=== PATIENT | female | born 1980 | race African-American/Black ===

== ENCOUNTER 2019-12-28 14:55 | Emergency (ER) | payer OTHER, SELFPAY ==
--- NOTE | 2019-12-28 15:38 | ED.GENADULT ---
HPI - General Adult General Chief complaint: Upper Respiratory Infection Stated complaint: Sinus drainage/Sore throat/cough/uti symptoms Time Seen by Provider: 12/28/19 15:38 Source: patient Mode of arrival: ambulatory Limitations: no limitations History of Present Illness HPI narrative: 39-year-old female patient presents to the [facility] with complaints of a rash to the face and sinus congestion for the past 1 to 2 weeks. Patient states that she recently moved to this area from [place] and works at the [email or web address]. Patient states that recently she has had some sinus congestion, sinus drainage causing her to cough at night, fullness to the ears as well as itchy eyes and a rash around the eyes. Patient denies take anything for her symptoms. Patient states she has also had a little bit of a scratchy throat but denies any chest pain or shortness of breath. Denies any trouble swallowing. Denies any abdominal pain. Patient states she has also had recent urgency, frequency and pain when she urinates for the past 4 days. Patient denies any fevers, body aches or chills. Related Data Allergies Allergy/AdvReac Type Severity Reaction Status Date / Time No Known Allergies Allergy Verified 12/28/19 15:41 Review of Systems Review of Systems: Narrative: CONSTITUTIONAL: Denies fever, chills, or sweats. EYES: Denies visual changes, redness, or discharge. ENT: Denies rhinorrhea, congestion, sore throat, or otalgia. CARDIOVASCULAR: Denies chest pain, palpitations, or edema. RESPIRATORY: Denies cough or dyspnea. GASTROINTESTINAL: Denies abdominal pain, nausea, vomiting, or diarrhea. GENITOURINARY: Denies dysuria or hematuria. SKIN: Denies rash or itching. MUSCULOSKELETAL: Denies back pain, joint pain, or myalgia. NEUROLOGIC: Denies headache, numbness, or weakness. PSYCHIATRIC: Denies anxiety or depression. PMFSH Social History Social History Gender identity (if verbalized by the patient): Female Comments At the time of my signature I agree with nursing past medical history, surgical, social, and family history. There is no relevant family history pertinent to the presenting complaint. Exam Narrative: Exam Narrative: GENERAL: Well-appearing, well-nourished, and in no acute distress. HEAD: Normocephalic, atraumatic. EYES: PERRLA and EOM intact without limitation or complaint of pain, patient does have some swelling noted to bilateral upper lobes with some erythema and a rash noted to the lateral side of the left thigh that appears blotchy with erythemic base and dry. No raised papules or macules are noted. No obvious deformity. No crusting or swelling.no tearing or draining.No photophobia. No nystagmus No FB or lesion on lid eversion. Corneas grossly clear, no obvious FB or hyphens/hypopyon. No injection to sclera. Lids and lashes clear. ENT: Nares with erythema and edema noted bilaterally and the right nare swollen shut, no rhinorrhea or epistaxis. Mucous membranes moist. Posterior pharynx with no erythema, tonsillar joint, exudates or lesions present. Bilateral TMs are clear with no erythema or foreign bodies in the canal. NECK: Supple. No lymphadenopathy CHEST: Clear to auscultation. No respiratory distress. HEART: Regular rate and rhythm. No murmur heard. Normal peripheral pulses. ABDOMEN: Soft, nontender, nondistended, normal active bowel sounds. No CVA tenderness to percussion EXTREMITIES: Normal range of motion. No edema. SKIN: Warm, dry, no rash. NEURO: No focal deficits. Alert and oriented x3. Course Vital Signs Vital signs: Vital Signs Temperature 36.6 C 12/28/19 15:40 Pulse Rate 62 12/28/19 15:40 Respiratory Rate 18 12/28/19 15:40 Blood Pressure 120/80 12/28/19 15:40 Pulse Oximetry 99 12/28/19 15:40 Temperature 36.6 C 12/28/19 15:43 Pulse Rate 62 12/28/19 15:43 Respiratory Rate 18 12/28/19 15:43 Blood Pressure 120/80 12/28/19 15:43 P
[2019-12-28 15:40] VITALS: BP 120/80; PULSE 62; RESP 18; TEMP 36.6; O2SAT 99
[2019-12-28 15:43] VITALS: BP 120/80; PULSE 62; RESP 18; TEMP 36.6; O2SAT 99
--- NOTE | 2020-01-01 13:23 | PC.NURSE ---
Verbal order received from Ja Luo NP to call in prescription for Diflucan 150 mg po # 2 tablets, take one tablet now and may repeat in 3 days if needed. Prescription called in to the [facility] on [address] in [place].
== END 2019-12-28 16:08 | disposition home or self-care (01) ==
PROVIDERS: Emergency Provider Nurse Practitioner Family
DX: H10.13 Acute atopic conjunctivitis, bilateral (principal); L25.9 Unspecified contact dermatitis, unspecified cause; R30.0 Dysuria; J30.9 Allergic rhinitis, unspecified; E03.9 Hypothyroidism, unspecified
CPT/HCPCS: 81003; 81025; 87086; 99203; G0463

== ENCOUNTER 2020-01-29 12:14 | Emergency (ER) | payer OTHER, SELFPAY ==
[2020-01-29 12:27] VITALS: BP 124/92; PULSE 86; RESP 16; TEMP 37.2; O2SAT 99
--- NOTE | 2020-01-29 12:59 | ED.EYEPROB ---
HPI - Eye Problem General Chief complaint: Eye Problems Stated complaint: itchy/redness bilateral eyes Time Seen by Provider: 01/29/20 12:18 Source: patient Mode of arrival: ambulatory Limitations: no limitations History of Present Illness HPI Narrative: Patient presents for evaluation of irritation and swelling surrounding both eyes. She indicates she currently works at the [employer] and they have been disinfecting the work environment quite frequently. She believes she has irritation related to some of the cleaning products. She states that they are forced to disinfect the work environment in between each patron. She notes redness surrounding both eyes. She felt as though her right eye was matted and she reports blurred vision in the right eye. She feels as though she has trash in the eye . She does wear glasses. She states she was seen here in the past for similar symptom limited to left eye. Denies any diplopia, halos, black spots. She does have pruritis. Related Data Home Medications Medication Instructions Recorded Confirmed methimazole 5 mg PO DAILY 12/28/19 01/29/20 Allergies Allergy/AdvReac Type Severity Reaction Status Date / Time No Known Allergies Allergy Verified 01/29/20 12:32 Review of Systems Review of Systems: Narrative: CONSTITUTIONAL: Denies fever, chills, or sweats. EYES: Reports irritation, redness and swelling surrounding both eyes with associated pruritis. Reports matting of right eye ENT: Denies rhinorrhea, congestion, sore throat, or otalgia. CARDIOVASCULAR: Denies chest pain, palpitations, or edema. RESPIRATORY: Denies cough or dyspnea. GASTROINTESTINAL: Denies abdominal pain, nausea, vomiting, or diarrhea. GENITOURINARY: Denies dysuria or hematuria. SKIN: Denies rash. Reports pruritis of skin surrounding both eyes. MUSCULOSKELETAL: Denies back pain, joint pain, or myalgia. NEUROLOGIC: Denies headache, numbness, dizziness, or weakness. PSYCHIATRIC: Denies anxiety or depression. [facility] Past Medical History Medical History (Updated 01/29/20 @ 13:21 by Oseas Hubbard, MATI, ) Hyperthyroidism Surgical History Surgical History (Updated 01/29/20 @ 13:05 by Oseas Hubbard, MATI, ) History of cholecystectomy History of tubal ligation Family History Family History Mother No significant past medical history Social History Social History Smoking status: Never smoker Alcohol intake: never Substance use: never Living arrangements: other Additional living arrangements comments: lives with fiance Gender identity (if verbalized by the patient): Female Sexual Orientation (if Verbalized by the Patient): Straight or Heterosexual Spiritual care concerns: No Exam Narrative: Exam Narrative: GENERAL: Well-appearing, well-nourished, and in no acute distress. HEAD: Normocephalic, atraumatic. EYES: PERRLA and EOMI. There is an area of dye uptake noted at 3 o'clock position overlying the right iris with fluorescein stain and Wood's lamp. There is an area of dye uptake noted at 9 o'clock position overlying the left iris when evaluated with fluorescein stain and Mccarthy lamp ENT: Nares clear, no rhinorrhea or epistaxis. Mucous membranes moist. Oropharynx without tonsillar hypertrophy exudate or other lesions. Bilateral TMs pearly mast nonbulging NECK: Supple. No adenopathy or masses. No carotid bruits or JVD CHEST: Clear to auscultation. No respiratory distress. No wheezes rales or rhonchi HEART: Regular rate and rhythm. No murmur heard. Normal peripheral pulses. ABDOMEN: Soft, nontender, nondistended, normal active bowel sounds. EXTREMITIES: Normal range of motion. No edema. SKIN: Warm, dry, no rash. Bilateral periorbital erythema NEURO: No focal deficits. Alert and oriented x3. PSYCH: Normal mood and affect. Course Course Emergency Course:
--- NOTE | 2020-01-29 14:46 | PC.NURSE ---
patient called stating that the [facility] in [place] [facility] [address] did not receive her prescriptions. i spoke with the pharmacy and confirmed that they did receive the prescriptions.
== END 2020-01-29 13:35 | disposition home or self-care (01) ==
PROVIDERS: Emergency Provider Nurse Practitioner
DX: L30.9 Dermatitis, unspecified (principal); S05.00XA Injury of conjunctiva and corneal abrasion without foreign body, unspecified eye, initial encounter; X58.XXXA Exposure to other specified factors, initial encounter; E05.90 Thyrotoxicosis, unspecified without thyrotoxic crisis or storm
CPT/HCPCS: 99213; A9270; G0463